=== PATIENT | male | born 2005 | race Caucasian/White ===

== ENCOUNTER 2023-01-21 13:44 | Observation (INO) ==
--- NOTE | 2023-01-21 14:21 | Emergency Department Note ---
Impression & Plan Pneumomediastinum, Pain on swallowing ED Provider Note NAME: MARICRUZ TILLEY AGE: 17 SEX: M : 2005 ARRIVES VIA: Walk-In INFORMANT: [Patient] ED PROVIDER(S): [Quentin Freitas MD] CHIEF COMPLAINT: Swallowing issue HISTORY OF PRESENT ILLNESS: The patient is a 17-year-old male who states that last night he was eating a bagel with sausage and cheese. He felt as if something may have gotten caught in his throat, he thinks it might be the bagel. He feels irritation at the sternal notch. He is able to swallow secretions. There was no choking episode, there was no vomiting. He has no issues with his esophagus but his dad had some issues and he wonders if there could be a genetic component. There was no trauma to the chest or neck. The patient does admit to some heavier lifting as he was moving into [facility] yesterday. Of note, I did speak to the patient's mother who did add some history. The patient apparently had a cold about a week ago and was coughing quite hard. He complained of some chest pain with coughing but, this seemed to improved, they never had an x-ray performed. PMHx/PSHx: See Below SOCIAL HISTORY: See Below. PHYSICAL EXAM: GENERAL: Patient is in no acute distress. HEENT: No acute trauma, normocephalic atraumatic, mucous membranes moist, no nasal congestion. No throat erythema or exudate. NECK: No stridor, no adenopathy, no meningismus, trachea is midline. LUNGS: Clear to auscultation bilaterally, no wheeze, no rhonchi, breath sounds equal. HEART: Without murmurs gallops or rubs, regular rate and rhythm. ABDOMEN: Soft, nontender, bowel sounds positive, no peritonitis. EXTREMITIES: No cyanosis or edema, full range of motion of all the joints wit hout pain or difficulty, no signs for acute trauma. NEUROLOGIC: Oriented x 3, no acute motor or sensory deficits, no focal weakness. DIFFERENTIAL DIAGNOSIS: Esophageal foreign body, esophageal obstruction, esophageal narrowing, esophageal abrasion or irritation, esophageal tear, among others. EMERGENCY DEPARTMENT COURSE/PROCEDURES: Prior/Outside records reviewed: None. MEDICAL DECISION MAKING: There is no leukocytosis or concerning anemia. There is a normal platelet count. No renal failure or significant electrolyte abnormality. Chest film per my review does show a small amount of mediastinal air, no pneumothorax. Chest CT with oral and IV contrast does show pneumomediastinum, the esophagus appeared intact without rupture. No pneumothorax. Repeat chest film performed several hours after the first showed no worsening of the pneumomediastinum, things appeared stable per my review. The patient did not require anything for pain. He has been resting comfortable. He appears quite stable. I did speak with Dr. Mae of pulmonology. He did not feel there was any need for emergent pulmonary intervention this evening. The amount of air on x-ray will need to be followed to be sure things are not worsening. He did suggest we speak to GI as esophageal rupture was still in the differential. I did speak with Dr. Pugh of GI. He felt that esophageal rupture was unlikely given the CT findings and the patient's clinical status. For now, no emergent GI intervention was felt warranted. Given the findings, admission/observation was recommended. Patient requires observation overnight. He will require a repeat x-ray in the morning to make sure things remain stable. I did speak with the patient and his mother, they are aware of the need for the hospital stay and for continuous monitoring. The cause for the mediastinal air is unclear but, certainly may have been from his recent coughing and recent heavy lifting/straining. DISPOSITION: Patient's presentation and findings warrant a hospital stay. Past Med/Surg History Medical History No significant medical problems Social History Smoking Status: Never smoker Preferred Language: Guyanese Feels Safe at Home: Yes Results & Data (ED) Vital Signs Vital Signs - 24 hr 01/21/23 13:47 01/21/23 14:48 01/21/23 16:00 Temperature 36.9 C Temperature Source Temporal Artery Scan Pulse Rate 86 Pulse Rate from SpO2 Sensor Respiratory Rate 20 Respiratory Depth Normal Normal Blood Pressure 150/91 H Blood Pressure Mean 110 Pulse Oximetry 100 Oxygen Delivery Method Room Air Sepsis Recent Fever Within 48 Hours No Sepsis New/Unexplained Change in Mental Status N/A Sepsis Action Taken by Nursing No Action Required 01/21/23 18:00 01/21/23 13:45 01/21/23 19:09 Temperature Temperature Source Pulse Rate 72 Pulse Rate from SpO2 Sensor 75 Respiratory Rate 24 Respiratory Depth Normal Blood Pressure Blood Pressure Mean Pulse Oximetry 95 Oxygen Delivery Method Room Air Room Air Sepsis Recent Fever Within 48 Hours Sepsis New/Unexplained Change in Mental Status Sepsis Action Taken by Prison Medications Current Medication List: was personally reviewed by me Laboratory Data Attestation: I reviewed the patient's lab results. 01/21/23 15:24 01/21/23 15:24 Lab Results 01/21/23 01/21/23 Range/Units 15:24 15:24 WBC 6.76 (4.8-10.8) K/ul RBC 5.27 (4.70-6.10) M/uL Hgb 15.8 (14.0-18.0) g/dl Hct 45.3 (42.0-52.0) % MCV 86.0 (80.0-100.0) fL MCH 30.0 (25.0-34.0) pg MCHC 34.9 (32.0-36.0) g/dL RDW Std Deviation 37.6 (36.4-46.3) fL RDW Coeff of Jerry 12.0 (11.5-14.5) % Plt Count 175 (130-400) K/uL MPV 11.1 (9.4-12.4) fL Immature Gran % (Auto) 0.3 % Neut % (Auto) 68.0 % Lymph % (Auto) 22.3 % [place] % (Auto) 7.4 % Eos % (Auto) 1.3 % Baso % (Auto) 0.7 % Neut # (Auto) 4.59 (1.40-6.50) K/uL Lymph # (Auto) 1.51 (1.2-3.4) K/uL [place] # (Auto) 0.50 (0.11-0.59) K/uL Eos # (Auto) 0.09 (0-0.50) K/uL Baso # (Auto) 0.05 (0-0.2) K/uL Immature Gran # (Auto) 0.02 (0.01-0.20) K/uL Sodium 138 (136-145) mmol/L Potassium 3.8 (3.5-5.1) mmol/L Chloride 103 (98-107) mmol/L Carbon Dioxide 27 (21-32) mmol/L Anion Gap 8 (3-11) BUN 14 (6-23) mg/dl Creatinine 0.87 (0.6-1.4) mg/dl Est Cr Clr Drug Dosing 135.4 ml/min Est GFR ( Amer) 145.0 ml/min Est GFR (Non-Af Amer) 125.1 ml/min BUN/Creatinine Ratio 16.1 (10-20) Glucose 98 (70-99(Fasting)) mg/dl Calcium 10.3 (8.6-10.3) mg/dl Administered Medications Discontinued Medications Al Hydrox/Mg Hydrox/Simethicone (Aluminum/Magnesium Susp 30 Ml Udc) 15 ml PO NOW STA Stop: 01/21/23 14:31 Last Admin: 01/21/23 14:39 Dose: 15 ml Documented By: [facility] Ioversol (Optiray 320 100ml) 92 ml IV ONCE ONE Stop: 01/21/23 16:16 Last Admin: 01/21/23 16:16 Dose: 92 ml Documented By: [facility] My Impression: Second chest x-ray: Per my review, the mediastinal air amount appears stable, no pneumothorax. Radiologist's Impression: Chest X-Ray 01/21/23 14:17 XR chest 2V PA/lateral HISTORY: 17 years-old Male poss fb esophagus acute chest pain COMPARISON: None TECHNIQUE: PA and lateral views of the chest FINDINGS: Cardiac mediastinal and hilar silhouettes are within normal limits. Pneumomediastinum with deep tissue air within the left supraclavicular tissues extending into the neck. No pneumothorax, pleural effusion, airspace consolidation or pulmonary edema. Minimal upper lumbar levoscoliosis. No opaque foreign body is identified. IMPRESSION: 1. Pneumomediastinum of unknown etiology. 2. No opaque foreign body identified. 3. No pneumothorax. ACT 112: Negative or not required by law. The above report was generated using voice recognition software. It may contain grammatical, syntax or spelling errors. Electronically signed by: Sundar Hurtado M.D. 01/21/2023 2:[address] 01/21/23 14:[address] WITH CONTRAST CT DOSE: 414.06 mGy.cm HISTORY: Acute shortness of breath with pneumomediastinum pneumomediastinum TECHNIQUE: Multiaxial CT images of the chest were performed following the IV administration of 92 cc of Optiray. Oral contrast also utilized. A dose lowering technique was utilized adhering to the principles of ALARA. COMPARISON: Chest radiograph of same day FINDINGS: Confirmation of the moderate pneumomediastinum with tissue air extending into the neck and left supraclavicular tissues. Unremarkable thyroid. Residual thymic tissue in the anterior mediastinum. No lymphadenopathy. The heart is normal in size without pericardial effusion. Unremarkable thoracic aorta and great vessels. The opacified pulmonary artery is unremarkable. Contras t is noted within the lumen of the esophagus. No contrast extravasation or esophageal wall thickening. No mediastinal fluid collections. No pneumothorax, pleural effusion, airspace consolidation or pulmonary edema. No discrete injury identified within the trachea bronchial tree. No acute process of the imaged upper abdomen. Unremarkable soft tissues. Mild mid thoracic dextroscoliosis. No acute fracture. IMPRESSION: 1. Confirmation of the moderate pneumomediastinum, possibly from an occult b ronchoalveolar injury. Correlate with patient history. 2. No definite esophageal injury or pleural effusion identified. ACT 112: Negative or not required by law. Electronically signed by: Sundar Hurtado M.D. 01/21/2023 4:53 PM Discharge Plan Visit Data Chief Complaint: Choking Stated Complaint: SOMETHING STUCK IN THROAT ED Provider: Quentin Freitas Discharge Problem: Pneumomediastinum, Pain on swallowing Patient Disposition: Admitted As Inpatient Condition: Fair Forms Stand Alone Forms: [facility] Referrals [facility] [Non-Staff] -
[2023-01-21] MEDS ORDERED: ALUMINUM/MAGNESIUM SUSP 30 ML UDC PO STA (14:30)
--- NOTE | 2023-01-21 14:47 | XRay Report ---
XR chest 2V PA/lateral HISTORY: 17 years-old Male poss fb esophagus acute chest pain COMPARISON: None TECHNIQUE: PA and lateral views of the chest FINDINGS: Cardiac mediastinal and hilar silhouettes are within normal limits. Pneumomediastinum with deep tissu e air within the left supraclavicular tissues extending into the neck. No pneumothorax, pleural effus ion, airspace consolidation or pulmonary edema. Minimal upper lumbar levoscoliosis. No opaque foreign body is identified. IMPRESSION: 1. Pneumomediastinum of unknown etiology. 2. No opaque foreign body identified. 3. No pneumothorax. ACT 112: Negative or not required by law. The above report was generated using voice recognition software. It may contain grammatical, syntax o r spelling errors. Electronically signed by: Sundar Hurtado M.D. 01/21/2023 2:44 PM
[2023-01-21 15:41] LABS: Basophils # (auto) 0.05 K/uL (0-0.2); Basophils % (auto) 0.7 %; Eosinophils # (auto) 0.09 K/uL (0-0.50); Eosinophils % (auto) 1.3 %; Hematocrit (blood only) 45.3 % (42.0-52.0); Hemoglobin 15.8 g/dl (14.0-18.0); Immature Granulocytes # (auto) 0.02 K/uL (0.01-0.20); Immature Granulocytes % (auto) 0.3 %; Lymphocytes # (auto) 1.51 K/uL (1.2-3.4); Lymphocytes % (auto) 22.3 %; Mean Corpuscular Hgb Conc 34.9 g/dL (32.0-36.0); Mean Platelet Volume 11.1 fL (9.4-12.4); Monocytes % (auto) 7.4 %; Neutrophils # (auto) 4.59 K/uL (1.40-6.50); Platelet Count 175 K/uL (130-400); RDW Standard Deviation 37.6 fL (36.4-46.3); Red Blood Count 5.27 M/uL (4.70-6.10); White Blood Count 6.76 K/ul (4.8-10.8)
[2023-01-21 15:59] LABS: BUN Creatinine Ratio 16.1 (10-20); Calcium 10.3 mg/dl (8.6-10.3); Creatinine Clr Calc Pharmacy 135.4 ml/min; Est GFR (Non-African American) 125.1 ml/min; Potassium 3.8 mmol/L (3.5-5.1)
[2023-01-21] MEDS ORDERED: OPTIRAY 320 100ml IV ONE (16:15)
--- NOTE | 2023-01-21 16:55 | CT Scan Report ---
CHEST CT WITH CONTRAST CT DOSE: 414.06 mGy.cm HISTORY: Acute shortness of breath with pneumomediastinum pneumomediastinum TECHNIQUE: Multiaxial CT images of the chest were performed following the IV administration of 92 cc of Optiray. Oral contrast also utilized. A dose lowering technique was utilized adhering to the atiya Grimaldo. COMPARISON: Chest radiograph of same day FINDINGS: Confirmation of the moderate pneumomediastinum with tissue air extending into the neck and left supraclavicular tissues. Unremarkable thyroid. Residual thymic tissue in the anterior mediastinu m. No lymphadenopathy. The heart is normal in size without pericardial effusion. Unremarkable thoraci c aorta and great vessels. The opacified pulmonary artery is unremarkable. Contrast is noted within t he lumen of the esophagus. No contrast extravasation or esophageal wall thickening. No mediastinal fl uid collections. No pneumothorax, pleural effusion, airspace consolidation or pulmonary edema. No discrete injury iden tified within the trachea bronchial tree. No acute process of the imaged upper abdomen. Unremarkable soft tissues. Mild mid thoracic dextroscol iosis. No acute fracture. IMPRESSION: 1. Confirmation of the moderate pneumomediastinum, possibly from an occult bronchoalveolar injury. Co rrelate with patient history. 2. No definite esophageal injury or pleural effusion identified. ACT 112: Negative or not required by law. Electronically signed by: Sundar Hurtado M.D. 01/21/2023 4:53 PM
--- NOTE | 2023-01-21 19:06 | History & Physical Report ---
Date of Service January 21, 2023 Assessment & Plan (1) Pneumomediastinum: Plan: Pneumomediastinum With coughing episode and mild pain 1 week prior, and then 1 day of sore throat while swallowing. No fever, chills, sweats. No tachycardia. No leukocytosis. Monitor fever curve. If any signs of infection develop, start empiric Zosyn - CT-C: 1. Confirmation of the moderate pneumomediastinum, possibly from an occult bronchoalveolar injury. Correlate with patient history. 2. No definite esophageal injury or pleural effusion identified. Study was performed with oral contrast in addition to IV contrast, oral contrast remains contained within the esophageal lumen without extravasation Case discussed with GI and gastroenterology. At this time no bronchoscopy or EGD recommended. Recommended for observation overnight, chest x-ray in 6 hours for stability, and another repeat in the morning. Avoid lifting and straining. If doing well can progress to outpatient follow-up. No retained foreign body present No other chronic medical problems DVT prophylaxis: Ambulate Diet: N.p.o. pending stability Disposition: Medical telemetry, follow for tachycardia as early signs of infection/worsening CODE STATUS: Full code History of Present Illness Primary Care Provider: Hugo Hong MD Dimas is a 17-year-old male with no past medical history who reports he had some coughing earlier in the week with some pain in the center of his chest which then resolved and and he felt well up until yesterday when he had some severe pain with swallowing. Initially was reported that he had choked on a bagel, he reports this is not true he just felt that his throat was more sore than normal while he was swallowing a bagel. He reports no food got stuck, and he does not feel that he was coughing particularly hard earlier in the week. He denies fever, chills, sweats. He has some soreness when he swallows, otherwise no chest pain or chest pressure at rest. Denies lightheadedness or dizziness. No nausea. Denies alcohol intake. Denies tobacco use/vaping. Denies any other medical problems. He is not having difficulty breathing, and reports it does not hurt to take a deep breath. Medical History: Reviewed Medications: Reviewed Surgical History: Reviewed Family history: Reviewed Allergies: Reviewed Social History: Reviewed amy at [facility]. Code Status: Full code Past Med/Surg History Social History Smoking Status: Never smoker Preferred Language: Slovenian Feels Safe at Home: Yes Review of Systems Review of Systems: All systems reviewed & are unremarkable except as noted in HPI & below Physical Exam Physical Exam: General: A&Ox3. NAD. Cooperative. HEENT: Atraumatic, normocephalic. PERLAA. Pulm: CTAB A&P. -wheezes, -rales, -rhonchi.Atraumatic, no crepitus. Symmetrical chest rise. No increased work of breathing. No respiratory distress. Cardiac: RRR, -mrg. Radial pulses intact and symmetrical. Abdominal: Nontender, nondistended, soft. BS present. Ext: mves all extremities equally Results & Data Results & Data Vital Signs (Past 12 Hours) Vital Signs Temp Pulse Resp BP Pulse Ox O2 Del Method 01/21/23 13:47 36.9 C 86 20 150/91 H 100 Room Air PG Care Time/CCT Total # of Minutes Spent Total Time Spent with Patient: Total time spent is greater than 50% in coordination of care (as documented) at patient's floor/unit and/or counseling patient: Coding Level of Care Code 06398 INT INP/OBS CARE 2/55MIN Diagnoses Pneumomediastinum J98.2
[2023-01-21] MEDS ORDERED: LACTATED RINGER'S 1,000 ML IV SCH (21:46)
[2023-01-22] MEDS: Patient's HEIGHT &/or WEIGHT Needed SCH ×2 (00:51→01:53)
[2023-01-22] MEDS ORDERED: Nursing to Pharmacy Communication SCH (01:00)
[2023-01-22 07:21] LABS: Basophils # (auto) 0.03 K/uL (0-0.2); Basophils % (auto) 0.5 %; Eosinophils # (auto) 0.13 K/uL (0-0.50); Eosinophils % (auto) 2.3 %; Hemoglobin 14.3 g/dl (14.0-18.0); Immature Granulocytes # (auto) 0.02 K/uL (0.01-0.20); Immature Granulocytes % (auto) 0.4 %; Lymphocytes # (auto) 2.05 K/uL (1.2-3.4); Mean Corpuscular Hemoglobin 29.7 pg (25.0-34.0); Mean Corpuscular Volume 87.3 fL (80.0-100.0); Mean Platelet Volume 11.5 fL (9.4-12.4); Monocytes # (auto) 0.38 K/uL (0.11-0.59); Monocytes % (auto) 6.9 %; Neutrophils # (auto) 2.93 K/uL (1.40-6.50); Neutrophils % (auto) 52.9 %; Platelet Count 151 K/uL (130-400); RDW Coefficient of Variation 11.9 % (11.5-14.5); RDW Standard Deviation 38.5 fL (36.4-46.3); Red Blood Count 4.81 M/uL (4.70-6.10); White Blood Count 5.54 K/ul (4.8-10.8)
[2023-01-22 07:42] LABS: BUN Creatinine Ratio 16.1 (10-20); Calcium 9.7 mg/dl (8.6-10.3); Creatinine Clr Calc Pharmacy 125.4 ml/min; Est GFR (African American) 137.4 ml/min; Est GFR (Non-African American) 118.6 ml/min
--- NOTE | 2023-01-22 07:42 | Hospitalist Progress Note ---
Date of Service January 22, 2023 Assessment & Plan (1) Pneumomediastinum: Plan: Pneumomediastinum With coughing episode and mild pain 1 week prior, and then 1 day of sore throat while swallowing. No fever, chills, sweats. No tachycardia. No leukocytosis. Monitor fever curve. If any signs of infection develop, start empiric Zosyn - CT-C: 1. Confirmation of the moderate pneumomediastinum, possibly from an occult bronchoalveolar injury. Correlate with patient history. 2. No definite esophageal injury or pleural effusion identified. Study was performed with oral contrast in addition to IV contrast, oral contrast remains contained within the esophageal lumen without extravasation Case discussed with GI and gastroenterology. At this time no bronchoscopy or EGD recommended. Recommended for observation repeat CXR for stability, No retained foreign body present No other chronic medical problems DVT prophylaxis: Ambulate Diet: N.p.o. pending stability Disposition: Medical telemetry, follow for tachycardia as early signs of infection/worsening CODE STATUS: Full code Admission and Anticipated Discharge Date Admission Date: January 21, 2023 Results & Data Results & Data Vital Signs (Past 12 Hours) Vital Signs Temp Pulse Pulse Pulse Resp BP BP 01/22/23 04:24 97.7 F 72 20 107/64 01/22/23 00:21 57 L 01/22/23 00:30 98.1 F 78 18 132/79 01/21/23 23:00 60 16 121/76 01/21/23 22:06 60 18 120/65 01/21/23 22:00 82 24 01/21/23 21:00 79 24 01/21/23 22:00 Pulse Ox Pulse Ox O2 Del Method O2 Del Method 01/22/23 04:24 99 Room Air 01/22/23 00:21 01/22/23 00:30 95 Room Air 01/21/23 23:00 98 Room Air 01/21/23 22:06 98 Room Air 01/21/23 22:00 98 Room Air 01/21/23 21:00 97 Room Air 01/21/23 22:00 99 Room Air PG Care Time/CCT Total # of Minutes Spent Total Time Spent with Patient: Total time spent is greater than 50% in coordination of care (as documented) at patient's floor/unit and/or counseling patient: Coding Diagnoses Pneumomediastinum J98.2
--- NOTE | 2023-01-22 08:15 | XRay Report ---
XR chest 2V PA/lateral HISTORY: pneumomediastinum--recheck COMPARISON: Chest 01/21/2023. FINDINGS: No change in the pneumomediastinum. No pneumothorax. No pleural effusions. The lungs are cl ear. The heart is normal in size. IMPRESSION: No change in the pneumomediastinum. ACT 112: Negative or not required by law. Electronically signed by: Petey Mae M.D. 01/22/2023 8:14 AM
--- NOTE | 2023-01-22 08:17 | XRay Report ---
XR chest 2V PA/lateral HISTORY: serial exam, pneumomediastinum COMPARISON: Chest 01/21/2023. FINDINGS: No significant change in the pneumomediastinum. The lungs are clear. No pleural effusions. No pneumothorax. The heart is normal in size. IMPRESSION: No significant change in the pneumomediastinum. ACT 112: Negative or not required by law. Electronically signed by: Petey Mae M.D. 01/22/2023 8:16 AM
--- NOTE | 2023-01-22 09:56 | XRay Report ---
XR chest 2V PA/lateral HISTORY: serial exam, pneumomediastinum COMPARISON: Chest 01/21/2023. FINDINGS: No significant change in the pneumomediastinum. No pneumothorax. No pleural effusions. The lungs are clear. The heart is normal in size. No acute fractures. IMPRESSION: No significant change in the pneumomediastinum. ACT 112: Negative or not required by law. Electronically signed by: Petey Mae M.D. 01/22/2023 9:55 AM
--- NOTE | 2023-01-22 17:50 | Discharge Summary ---
Date of Service January 22, 2023 Admission HPI Per Admitting Provider Dimas is a 17-year-old male with no past medical history who reports he had some coughing earlier in the week with some pain in the center of his chest which then resolved and and he felt well up until yesterday when he had some severe pain with swallowing. Initially was reported that he had choked on a bagel, he reports this is not true he just felt that his throat was more sore than normal while he was swallowing a bagel. He reports no food got stuck, and he does not feel that he was coughing particularly hard earlier in the week. He denies fever, chills, sweats. He has some soreness when he swallows, otherwise no chest pain or chest pressure at rest. Denies lightheadedness or dizziness. No nausea. Denies alcohol intake. Denies tobacco use/vaping. Denies any other medical problems. He is not having difficulty breathing, and reports it does not hurt to take a deep breath. Medical History: Reviewed Medications: Reviewed Surgical History: Reviewed Family history: Reviewed Allergies: Reviewed Social History: Reviewed amy at [facility]. Code Status: Full code Principal Diagnosis pneumomediastinum Discharge Exam lungs are clear, no crepitance palpated Discharge Data Consultations 01/21/23 17:30 ED Decision to Admit Stat Ordered Studies 01/21/23 14:48 CT chest diagnostic w con Stat Hospital Course (1) Pneumomediastinum: Pneumomediastinum With coughing episode and mild pain 1 week prior, and then 1 day of sore throat while swallowing. No fever, chills, sweats. No tachycardia. No leukocytosis. I discussed case with Radiology, given pt had oral contrast with CT and no suggestion of esophageal leak, this may have been from cough/valsalva and be of a pulmonary source. will not send home on antibiotics - CT-C: 1. Confirmation of the moderate pneumomediastinum, possibly from an occult bronchoalveolar injury. Correlate with patient history. 2. No definite esophageal injury or pleural effusion identified. Study was performed with oral contrast in addition to IV contrast, oral contrast remains contained within the esophageal lumen without extravasation Case discussed with GI and gastroenterology. At this time no bronchoscopy or EGD recommended. recurrent CXR without progression No other chronic medical problems CODE STATUS: Full code Total Time Total Time Spent Total Time Spent (In Minutes): it required greater than 30 minutes to prepare this patient for discharge Discharge Plan Discharge Items Patient Disposition: Home - Self-Care Reason For Visit: PNEUMOMEDIASTINUM Discharge Diagnosis: pneumomediastinum Condition on Discharge: Fair Activity: Per Instructions section Non-emergency contact: Primary Care Provider Call non-emergency contact if: your symptoms worsen Follow-up/Referrals: Hugo Hong MD [Primary Care Provider] - Diet: Regular Addtl Attending Provider Instructions: very important to follow up with [facility] Pneumomediastinum (say "[id number]") is the leakage of air into a space between the lungs (mediastinum). As air builds up in this space in your chest, you may have shortness of breath or chest pain that moves to your neck or arm. Most cases get better on their own. But if there are problems, you may need to breathe oxygen through a face mask, or have a tube placed in your chest, to help you heal. It can take several days for the leaked air to be reabsorbed by your body, and you may need more treatment. Avoid activities that will increase pressure in your chest, do not hold in a cough or sneeze, no swimming underwater, no air travel or strenuous activity for al least a month, or otherwise directed by your primary care The doctor has checked you carefully, but problems can develop later. If you n otice any problems or new symptoms,get medical treatment right away. Follow-up care is a hernandez part of your treatment and safety.Be sure to make and go to all appointments, and call your doctor if you are having problems. How can you care for yourself at home? * Get plenty of rest and sleep. You may feel weak and tired for a while, but your energy level will improve with time. * To relieve chest pain, especially when you cough, press a pillow against your chest. * Take pain medicines, you may use tylenol and ibuprofen * Avoid any movements that make you strain your muscles. Try not to cough, laugh hard, or lift anything heavy. * Do not smoke or allow others to smoke around you. * When should you call for help? [id number] you think your may need emergency care. For example, call if: * You have severe trouble breathing. * You passed out (lost consciousness). * You have severe chest pain. Call your doctor nowor seek immediate medical care if: * You have new or worse trouble breathing. * You have new or worse chest pain. * You have a fever. * You cough up blood. * You are bleeding through the bandage where the tube was put in. * Your chest tube comes out or is bent or blocked. Watch closely for changes in your health, and be sure to contact your doctor if: * You do not get better as expected. Pending Studies at Discharge: No Stand-Alone Forms: Community Health, Smoking Cessation Medications and DC Order Discharge Orders: Discharge Order (Routine); Ordered 01/22/23 Ordered By: Home Stinson Admission Data Admit Date/Time: 01/21/23 19:26 Attending Provider: Home Stinson Admit Provider: Robbie Paez Primary Care Provider: Hugo Hong Other Providers: Robbie Paez Other Interventions: Discharge Summary Assessment (RN) Last Done: 01/22/23 14:39 Coding Level of Care Code 49413 INP/OBS DISCH >30 MIN Diagnoses Pneumomediastinum J98.2
== END 2023-01-22 15:33 | disposition home or self-care (01) ==
LOC: ED 13:44 → EDINP 13:44 → SUATTDRO 19:26 → 2N 21:47
DX: J98.2 Interstitial emphysema